=== PATIENT | male | born 1960 | race Caucasian/White ===

== ENCOUNTER 2017-09-11 17:28 | Emergency (ER) | payer OTHER ==
[~2017-09-11] VITALS: Ht 180.3 cm; Wt 108.9 kg
[2017-09-11] MEDS ORDERED: INSU100V7 SQ (18:14)
[2017-09-11] MEDS ORDERED: CLOP75TA15 PO (18:14)
[2017-09-11] MEDS ORDERED: INSU100I14 SQ (18:14)
[2017-09-11] MEDS ORDERED: LOSA100T15 PO (18:15)
[2017-09-11] MEDS ORDERED: METO100T3 PO (18:15)
[2017-09-11] MEDS ORDERED: ATOR80TA26 PO (18:15)
[2017-09-11] MEDS ORDERED: [UNRECOGNIZED DRUG - REMARK] (18:15)
[2017-09-11] MEDS ORDERED: predniSONE 20 MG TABLET PO ONE (20:00)
[2017-09-11] MEDS ORDERED: predniSONE 50 MG TABLET ONE (20:21)
[2017-09-11] MEDS ORDERED: predniSONE 10 MG TABLET ONE (20:21)
[2017-09-11] MEDS ORDERED: LEVOFLOXACIN 750 MG TABLET PO ONE (21:45)
[2017-09-11] MEDS ORDERED: LEVOFLOXACIN 750 MG TABLET ONE (21:54)
--- NOTE | 2017-09-11 21:55 | NUR ---
Patient discharged to home in stable conditon. Written and verbal after care instructions given. Patient verbalizes understanding of instructions.
== END 2017-09-11 21:56 | disposition home or self-care (01) ==
LOC: ER 17:29
DX: J20.9 Acute bronchitis, unspecified (principal); I10 Essential (primary) hypertension; I25.10 Atherosclerotic heart disease of native coronary artery without angina pectoris; E11.9 Type 2 diabetes mellitus without complications; I25.2 Old myocardial infarction; J45.909 Unspecified asthma, uncomplicated; Z79.4 Long term (current) use of insulin; Z95.5 Presence of coronary angioplasty implant and graft; E78.5 Hyperlipidemia, unspecified; Z90.49 Acquired absence of other specified parts of digestive tract
CPT/HCPCS: 71010; 87400; A4663; J7512